=== PATIENT | female | born 1990 | race Caucasian/White ===

== ENCOUNTER 2025-01-22 01:43 | Emergency (ER) | payer BC, SELFPAY ==
[2025-01-22 01:43] VITALS: BMI 21.2
[2025-01-22 01:46] VITALS: BP 116/79; PULSE 65; RESP 18; TEMP 36.7; O2SAT 98
--- NOTE | 2025-01-22 02:26 | XR_ITS ---
Examination: Abdomen sonogram, Limited Date and time of exam: January 22, 2025, 0238 hrs. Indications: Right upper abdominal pain radiating to the back today Technique: Real-time christine scale transabdominal sonographic images of the upper abdomen obtained. Findings: Doppler sludge Negative for gallstones Normal gallbladder wall. Normal common bile duct 0.2 cm Pancreatic head 2.4 cm Liver 13.3 cm benign liver cysts, the largest 24 mm Normal hepatopedal portal venous flow Patent IVC Impression: Gallbladder sludge, negative for cholelithiasis, negative for cholecystitis
--- NOTE | 2025-01-22 02:28 | EDNOTE_ITS ---
ED Abdominal Pain RME/HPI General Chief Complaint: Abdominal Pain Stated complaint: ABD PAIN Time seen by provider: 01/22/25 02:22 Arrival date/time: 01/22/25 01:43 Source: patient, RN notes reviewed and old records reviewed Mode of arrival: ambulatory Limitations: no limitations RME / HPI RME / HPI narrative: 35yof presents to ED for RUQ abdominal pain and nausea intermittent x2 days but worsened overnight. History of gallbladder flares. No fever, shortness of breath, chest pain or urinary symptoms reported. No medications or treatment since symptom onset. Related Data Previous Rx's ?Medication ?Instructions ?Recorded naproxen 500 mg tablet (Naprosyn) 500 mg PO BID PRN pa in #30 tabs 08/16/21 albuterol sulfate 90 mcg/actuation 2 puff inhalation Q 6H PRN 04/28/22 aerosol inhaler shortness of breath or wheez ing #8.5 grams ibuprofen 600 mg tablet 600 mg PO TID PRN pain #30 t abs 02/05/23 ondansetron 4 mg disintegrating 4 mg PO Q8H PRN nausea and 02/05/23 tablet vomiting #15 tabs naproxen 500 mg tablet 500 mg PO BID #30 tabs 07/14 acetaminophen 500 mg tablet 1,000 mg (2 x 500 mg) PO Q 6H PRN 01/22/25 (Tylenol Extra Strength) pain #30 tabs cefdinir 300 mg capsule 300 mg PO BID 7 days #14 cap s 01/22/25 dicyclomine 20 mg tablet 20 mg PO Q6HR PRN abdominal pain 01/22/25 #20 tabs ondansetron 4 mg disintegrating 4 mg PO Q6H PRN nausea and 01/22/25 tablet vomiting #10 tabs Allergies Allergy/AdvReac Type Severity Reaction Status Date / Time bee venom protein (honey bee) Allergy Severe Swelling Verified 01/22/25 01:43 of Lip/Tongue/Throat coconut Allergy Severe Anaphylaxis Verified 01/22/25 01:43 sertraline Allergy Mild [place] Verified 01/22/25 01:43 Review of Systems Review of Systems Systems Reviewed: All systems reviewed, normal except as documented Constitutional Constitutional: Denies chills and Denies fever(s) Cardiovascular Cardiovascular: Denies chest pain and Denies dyspnea Respiratory Respiratory: Denies dyspnea Gastrointestinal Gastrointestinal: Reports abdominal pain, Denies loose stools, Reports nausea and Denies vomiting Genitourinary Genitourinary: Denies dysuria, Denies flank pain and Denies hematuria Past Medical History Surgical History SURGICAL: Positive Section OTHER SURGICAL HX: breast aug Social History SMOKING STATUS: Never smoker SUBSTANCE USE: does not use ALCOHOL: Current (social) Past Medical History Comments PMH COMMENT: denies pmhx ED Exam General Limitations: Present no limitations General appearance: Present alert and in no apparent distress Head Head exam: Present atraumatic and normocephalic Eye Eye exam: Present normal appearance, PERRL and EOMI ENT ENT exam: Present normal exam and mucous membranes moist Neck Neck exam: Present normal inspection and full ROM Chest Chest inspection: Present normal inspection and symmetric chest wall rise Respiratory Respiratory exam: Present normal lung sounds bilaterally; Absent respiratory distress Abdominal Exam Abdominal exam: Present soft and tenderness (RUQ, mild); Absent distention, guarding or rebound Extremities Exam Extremities exam: Present normal inspection and full ROM Back Exam Back exam: Absent CVA tenderness (R) or CVA tenderness (L) Neurological Exam Neurological exam: Present alert and oriented X3 Psychiatric Psychiatric exam: Present normal affect and normal mood Skin Skin exam: Present warm, dry, intact and normal color Course Quality Measures none Orders Category Date Time Status US gall bladder Stat Exams 01/22/25 02:26 Completed Amylase Stat Lab 01/22/25 02:29 Completed CBC Stat Lab 01/22/25 02:29 Completed CMP [Comprehensive Metabolic Panel] Stat Lab 01/22/25 02:29 Completed HCG Qualitative,Urine Stat Lab 01/22/25 04:17 Completed UA [Urinalysis] Stat Lab 01/22/25 04:17 Completed HYDROcodone*/APAP 7.5/325 [Exira 7.5/325] Med 01/22/25 02:26 Discontinued 1 tab PO X1 ONE Ondansetron Odt [Zofran Odt] Med 01/22/25 02:26 Discontinued 4 mg PO X1 ONE Vital Signs Vital signs: Vital Signs Temperature 98.0 F 01/22/25 01:46 Pulse Rate 65 01/22/25 01:46 Respiratory Rate 18 01/22/25 01:46 Blood Pressure 116/79 01/22/25 01:46 Pulse Oximetry (%) 98 01/22/25 01:46 Oxygen Delivery Method Room Air 01/22/25 01:46 Abdominal Pain MDM MDM Narrative MDM Narrative:: 35yof presents to ED for RUQ abdominal pain and nausea intermittent x2 days but worsened overnight. History of gallbladder flares. No fever, shortness of breath, chest pain or urinary symptoms reported. No medications or treatment since symptom onset. Gallbladder US shows sludge but no stones or signs of infection. Will treat for mild UTI, patient denies dysuria or flank pain. Recommended close pcp follow up. Stable for dc, RTED precautions given. Patient data External records reviewed:: [facility] previous records (07/15/23 ED visis for influenza) Clinical information provided by:: patient Social determinants that could affect healthcare access:: none Patient has the following chronic illnesses:: none How is presenting disease/condition affected by chronic disease/condition?: no chronic disease Evaluation data The following diagnostics were reviewed and interpreted by me:: lab results and radiology exam(s) Lab and/or radiology exams considered but not ordered:: none Interpretation Summary: No leukocytosis No anemia LFTs and amylase wnl UA positive leuks/nitrites Gallbladder US: no gallstones per my read Medications / Prescriptions Medications or Prescriptions considered but not ordered:: none Medication administrations:: Medication Administration History Discontinued Medications Hydrocodone Bitart/Acetaminophen (Hydrocodone/Apap 7.5/325 Tablet) 1 tab PO X1 ONE Stop: 01/22/25 02:27 Last Admin: 01/22/25 03:24 Dose: 1 tab Documented By: VALERIE Ondansetron HCl (Ondansetron Odt 4 Mg Tabrap) 4 mg PO X1 ONE; Protocol Stop: 01/22/25 02:27 Last Admin: 01/22/25 03:23 Dose: 4 mg Documented By: VALERIE above medications administered in ED Consultations Consultation(s) initiated? (list below): No Diagnosis Differential diagnosis abdominal pain: other (cholelithiasis, cholecystitis, gastritis, PUD, constipation, gastroenteritis, pancreatitis) Most likely diagnosis given after review of the tests above:: gallbladder sludge, abdominal pain Admission Indicated Admission indicated?: not indicated Admission Request Was there a request for admission?: No Disposition Plan Disposition Plan: Discharge Discharge Attestation Discharge Attestation: The patient and all family members were given an opportunity to ask questions and understood the discharge instructions. Discharge instructions specifically effects, indications for sooner follow up or return to the emergency department, and the expected course of current diagnosis. Patient condition: Stable Discharge Plan Plan Patient Disposition: HOME (Self Care) Patient condition on transfer: Stable Prescriptions/Referrals Prescriptions/Med Rec: New ondansetron 4 mg tablet,disintegrating 4 mg PO Q6H PRN (Reason: nausea and vomiting) Qty: 10 0RF acetaminophen [Tylenol Extra Strength] 500 mg tablet 1,000 mg PO Q6H PRN (Reason: pain) Qty: 30 0RF dicyclomine 20 mg tablet 20 mg PO Q6HR PRN (Reason: abdominal pain) Qty: 20 0RF cefdinir 300 mg capsule 300 mg PO BID 7 Days Qty: 14 0RF No Action naproxen [Naprosyn] 500 mg tablet 500 mg PO BID PRN (Reason: pain) Qty: 30 0RF ibuprofen 600 mg tablet 600 mg PO TID PRN (Reason: pain) Qty: 30 0RF ondansetron 4 mg tablet,disintegrating 4 mg PO Q8H PRN (Reason: nausea and vomiting) Qty: 15 0RF albuterol sulfate 90 mcg/actuation HFA aerosol inhaler 2 puff inhalation Q6H PRN (Reason: shortness of breath or wheezing) Qty: 8.5 0RF naproxen 500 mg tablet 500 mg PO BID Qty: 30 0RF Referrals: No Primary/Family,Physician [Primary Care Provider] - In 1 week Problem List Clinical Impression: Gallbladder sludge, Abdominal pain, UTI (urinary tract infection) Patient/Caregiver Discharge Instructions Education Materials: Abdominal Pain Print Language: Belarusian Stand Alone Forms: Cris Award Info., Work/School Release, Patient Portal Info Letter PA/NUCLEAR CHEMISTRY TECHNICIAN Supervising Physician PA/NUCLEAR CHEMISTRY TECHNICIAN Supervising Physician: Yannick
[2025-01-22 02:44] LABS: Basophils # (Auto) 0.0 Thou/mm3 (0.0-0.2); Basophils % (Auto) 1 % (0-2.5); Eosinophils # (Auto) 0.1 Thou/mm3 (0.0-0.5); Eosinophils % (Auto) 2 % (0-10); Hematocrit 38.9 % (36.0-46.0); Hemoglobin 13.2 g/dL (12.0-16.0); Immature Granulocytes Auto 0.01 Thou/mm3 (0.00-0.00); Lymphocytes # (Auto) 1.2 Thou/mm3 (1.0-4.8); Lymphocytes % (Auto) 23 % (10-50); Mean Corpuscular HGB Conc 33.9 g/dl (31.0-37.0); Mean Corpuscular Hemoglobin 31.8 pg (25.0-35.0); Mean Corpuscular Volume 94 fL (80-100); Monocytes # (Auto) 0.6 Thou/mm3 (0.0-0.8); Monocytes % (Auto) 11 % (0-12); Neutrophils # (Auto) 3.4 Thou/mm3 (1.8-7.7); Neutrophils % (Auto) 64 % (37-80); Nucleated Red Blood Cell # 0.00 Thou/mm3 (0.00-0.00); Nucleated Red Blood Cell % 0 /100 WBC (0); Platelet Count 244 Thou/mm3 (140-440); RDW Standard Deviation 38.3 fL (36.4-46.3); Red Blood Count 4.15 Miln/mm3 (4.00-5.20); White Blood Count 5.2 Thou/mm3 (3.6-11.0)
[2025-01-22 02:57] LABS: Alanine Aminotransferase 11 U/L (10-49); Albumin, Serum 4.1 gm/dL (3.5-5.0); Albumin/Globulin Ratio 1.8 (1.2-2.2); Alkaline Phosphatase 45 U/L (46-116); Amylase 75 U/L (30-118); Anion Gap 7 (7-16); Aspartate Amino Transferase 18 U/L (0-34); BUN/Creatinine Ratio 29 Ratio (12-20); Bilirubin,Total 0.3 mg/dL (0.3-1.2); Blood Urea Nitrogen 20 mg/dL (9-23); Calcium 9.2 mg/dL (8.3-10.6); Calcium (Corrected) 9.2 mg/dL (8.5-10.1); Carbon Dioxide 27.3 mMol/L (20.0-31.0); Chloride 109 mMol/L (98-107); Creatinine (Component) 0.7 mg/dL (0.6-1.3); Estimated Creatinine Clearance 95.0 mL/min (>60); Globulin 2.3 gm/dL (2.3-3.5); Glucose 79 mg/dL (74-106); Osmolality,Calculated 286 (275-295); Potassium 4.1 mMol/L (3.4-5.1); Sodium 143 mMol/L (136-145); Total Protein 6.4 gm/dL (5.7-8.2); eGFR > 60 See Note
[2025-01-22] MEDS: ONDANSETRON ODT 4 MG TABRAP PO (03:23)
[2025-01-22] MEDS: HYDROcodone/APAP 7.5/325 TABLET 1 TAB PO (03:24)
--- NOTE | 2025-01-22 03:29 | PRELIM_ITS ---
Gallbladder ultrasound with Doppler and wave Doppler spectral analysis. January 22, 2025 at 0238 hours Clinical history: Right upper quadrant pain. Comparison: No prior study is available for comparison. Findings: Hypoechoic lesion in the left liver lobe measures 1.4 x 1.0 x 0.9 cm. No intrahepatic biliary duct dilation. Gallbladder sludge. Gallbladder wall thickening. No gallbladder calculus or pericholecystic fluid is identified. The common duct is normal in caliber at 2.3 mm. No free fluid is demonstrated on the submitted images. The portal vein is patent with hepatopetal flow and normal wave Doppler spectral analysis. Ramey sign is not available at the time of this report. The hepatic veins are patent. The IVC is patent. Impression: Gallbladder wall thickening and gallbladder sludge, acute cholecystitis cannot be excluded. Consider correlation with HIDA scan. Hyperechoic liver lesion. Consider follow-up with MRI for characterization. Report Electronically Signed By: Junior Sena 01/22/2025 3:29:08 AM [EST]
[2025-01-22 04:21] LABS: Collection Type, Urine Clean Catch
[2025-01-22 04:33] LABS: HCG Qualitative,Urine Negative
[2025-01-22 04:37] LABS: Bacteria,Urine 1+; Bilirubin,Urine Negative (Negative); Blood,Urine Negative (Negative); Clarity,Urine Clear (Clear/Hazy); Color,Urine Lt-Yellow (Lt Yel-Yel); Glucose, Urine Negative (Negative); Ketones,Urine Negative (Negative); Leukocyte Esterase,Urine Positive (Negative); Nitrite,Urine Positive (Negative); PH,Urine 6.5 (5.0-7.0); Protein,Urine Negative (Neg - Trace); RBC,Urine < 1 /hpf (0-3); Specific Gravity,Urine 1.022 (1.001-1.035); Squamous Epithelial Cell,Urine 3 /hpf (0-5); Urobilinogen,Urine Negative mg/dL (0.0-1.0); WBC,Urine 7 /hpf (0-5)
== END 2025-01-22 05:02 | disposition home or self-care (01) ==
PROVIDERS: Physician Assistant; Emergency Provider Emergency Medicine
DX: K82.8 Other specified diseases of gallbladder (principal); N39.0 Urinary tract infection, site not specified
CPT/HCPCS: 36415; 76705; 80053; 81001; 81025; 82150; 85025; 99283; Q0162; A9270